=== PATIENT | male | born 1960 | race African-American/Black ===

== ENCOUNTER 2019-01-22 12:39 | Inpatient (IN) | payer MEDICARE ==
[~2019-01-22] VITALS: Ht 188 cm; Wt 117.9 kg
[2019-01-22] MEDS ORDERED: SODIUM CHLORIDE 0.9% 1,000 ML IV ONE (13:08)
[2019-01-22 14:05] LABS: BASOPHILS % 0.4 % (0.0-2.0); EOSINOPHILS % 3.1 % (0.0-5.0); HEMATOCRIT. 40.2 % (42.0-52.0); HEMOGLOBIN. 13.3 g/dL (14.0-18.0); LYMPHOCYTES % 8.3 % (20.0-50.0); MEAN CORPUSCULAR HEMOGLOBIN 30.2 pg (28.0-32.0); MEAN CORPUSCULAR VOLUME 91.4 fL (80.0-94.0); MEAN PLATELET VOLUME 10.7 fl (7.4-10.4); MONOCYTES % 6.1 % (2.0-8.0); NEUTROPHILS % 82.1 % (40.0-76.0); PLATELET 183 x1000/uL (130-400); RED BLOOD CELL COUNT 4.39 mill/uL (4.7-6.1); RED CELL DISTRIBUTION WIDTH 14.3 % (11.6-14.6)
[2019-01-22 14:10] LABS: CHLORIDE 112 mEq/L (98-107)
[2019-01-22 14:14] LABS: ETHANOL BLOOD < 10 mg/dL
[2019-01-22 14:51] LABS: CLARITY URINE CLOUDY (CLEAR); COLOR URINE DARK YELLOW (YELLOW); KETONES URINE TRACE (NEGATIVE); LEUKOCYTE ESTERASE URINE NEGATIVE (NEGATIVE); NITRITE URINE NEGATIVE (NEGATIVE); OCCULT BLOOD URINE 2+ (NEGATIVE); PROTEIN URINE 2+ (NEGATIVE); SPECIFIC GRAVITY URINE 1.034 (1.005-1.030)
[2019-01-22 15:08] LABS: *BARBITURATES SCREEN URINE NEGATIVE (NEGATIVE); CANNABINOID URINE SCREEN NEGATIVE (NEGATIVE); METHADONE URINE SCREEN NEGATIVE (NEGATIVE); OPIATES URINE SCREEN NEGATIVE (NEGATIVE); PHENCYCLIDINE URINE SCREEN NEGATIVE (NEGATIVE)
[2019-01-22 15:09] LABS: *AMPHETAMINES SCREEN URINE PRESUMTIVE POSITIVE (NEGATIVE); *BENZODIAZEPINES SCREEN URINE PRESUMTIVE POSITIVE (NEGATIVE); *COCAINE SCREEN URINE PRESUMTIVE POSITIVE (NEGATIVE)
[2019-01-22] MEDS ORDERED: DOCUSATE SODIUM 100MG CAPSULE PO PRN (15:45)
[2019-01-22] MEDS ORDERED: ACETAMINOPHEN 650MG SUPP PR PRN (15:45)
[2019-01-22] MEDS ORDERED: GUAIFENESIN 200MG/10ML SUGAR FREE UDC PO PRN (15:45)
[2019-01-22] MEDS ORDERED: IPRATROPIUM/ALBUTEROL 0.5-3(2.5)MG/3ML NEB INH PRN (15:45)
[2019-01-22] MEDS ORDERED: CLONIDINE 0.1MG TABLET PO PRN (15:45)
[2019-01-22] MEDS ORDERED: ACETAMINOPHEN 325MG TABLET PO PRN (15:45)
[2019-01-22] MEDS ORDERED: DIPHENHYDRAMINE 50MG/ML VIAL IV PRN (15:45)
[2019-01-22] MEDS ORDERED: DEXTROSE 50% WATER 50ML SYRINGE IV PRN (15:45)
[2019-01-22] MEDS ORDERED: ONDANSETRON HCL 4MG/2ML INJ IV PRN (15:45)
[2019-01-22] MEDS ORDERED: NA PHOS,M-B/NA PHOS,DI-BA ENEMA 118ML PR PRN (15:45)
[2019-01-22] MEDS ORDERED: LORAZEPAM 2MG/ML CPJ IV PRN (15:45)
[2019-01-22] MEDS ORDERED: MAGNESIUM/ALUMINUM HYDROXIDE/SIMETHICONE 30ML UDC PO PRN (15:45)
[2019-01-22 16:04] LABS: PROTHROMBIN TIME 10.3 sec (9.6-11.0)
[2019-01-22 16:30] VITALS: BP 102/71
[2019-01-22 16:36] VITALS: BP 102/71
[2019-01-22] MEDS: BLOOD SUGAR DIAGNOSTIC STRIP TEST SCH ×2 (16:45→21:17)
[2019-01-22] MEDS ORDERED: ENOXAPARIN 40MG/0.4ML SYR SUBCUT SCH (17:00)
[2019-01-22] MEDS: INSULIN LISPRO 100 UNITS/ML SUBCUT SCH ×2 (17:15→21:00)
[2019-01-22] MEDS ORDERED: LEVOFLOXACIN 500MG PREMIX 100 ML IV NR (18:00)
[2019-01-22] MEDS: DEXTROSE 5% WATER 1,000 ML IV SCH (18:15)
[2019-01-22 20:00] VITALS: BP 113/82
[2019-01-22] MEDS: HYDROCODONE/ACETAMINOPHEN 5/325MG TABLET PO PRN (20:58)
[2019-01-22] MEDS: DILTIAZEM HCL 30MG TABLET PO SCH (21:00)
[2019-01-22 23:30] LABS: CREATINE KINASE MB FRACTION 20.8 ng/mL (0.5-3.6)
[2019-01-23] VITALS: BP 124/83
[2019-01-23] MEDS: ASPIRIN 325MG EC TABLET PO SCH (01:30)
[2019-01-23] MEDS ORDERED: ENOXAPARIN 80MG/0.8ML SYR SUBCUT NR (01:30)
[2019-01-23] MEDS: METOPROLOL TARTRATE 25MG TABLET PO SCH ×2 (01:30→09:16)
[2019-01-23 04:00] VITALS: BP 123/85
[2019-01-23] MEDS: DILTIAZEM HCL 30MG TABLET PO SCH ×3 (06:25→21:07)
[2019-01-23] MEDS: DEXTROSE 5% WATER 1,000 ML IV SCH ×2 (06:27→19:10)
[2019-01-23] MEDS: BLOOD SUGAR DIAGNOSTIC STRIP TEST SCH ×4 (06:27→20:16)
[2019-01-23] MEDS: INSULIN LISPRO 100 UNITS/ML SUBCUT SCH ×4 (06:34→21:08)
[2019-01-23 07:07] LABS: BASOPHILS % 0.9 % (0.0-2.0); EOSINOPHILS % 5.7 % (0.0-5.0); HEMATOCRIT. 37.5 % (42.0-52.0); HEMOGLOBIN. 12.5 g/dL (14.0-18.0); LYMPHOCYTES % 20.8 % (20.0-50.0); MEAN CORPUSCULAR HEMOGLOBIN 30.5 pg (28.0-32.0); MEAN CORPUSCULAR VOLUME 91.5 fL (80.0-94.0); MEAN PLATELET VOLUME 10.7 fl (7.4-10.4); MONOCYTES % 10.3 % (2.0-8.0); NEUTROPHILS % 62.3 % (40.0-76.0); PLATELET 155 x1000/uL (130-400); RED CELL DISTRIBUTION WIDTH 13.9 % (11.6-14.6)
[2019-01-23 07:13] LABS: CHLORIDE 108 mEq/L (98-107)
[2019-01-23] MEDS ORDERED: DICLOFENAC NA PO (07:45)
[2019-01-23] MEDS ORDERED: GABA-533 PO (07:46)
[2019-01-23] MEDS ORDERED: ATEN50TA PO (07:47)
[2019-01-23] MEDS ORDERED: OMEP20CA5 PO (07:48)
[2019-01-23] MEDS ORDERED: METF-416 PO (07:50)
[2019-01-23] MEDS ORDERED: ATOR40TA70 PO (07:51)
[2019-01-23] MEDS ORDERED: AMLO10TA80 PO (07:52)
[2019-01-23] MEDS ORDERED: CYCL10TA7 PO (07:53)
[2019-01-23 07:54] LABS: HDL CHOLESTEROL 35 mg/dL (40-59); T4 FREE 1.12 ng/dL (0.76-1.46)
[2019-01-23] MEDS ORDERED: LOSARTAN PO (07:54)
[2019-01-23 07:55] LABS: CREATINE KINASE MB FRACTION 19.5 ng/mL (0.5-3.6)
[2019-01-23] MEDS ORDERED: ACETAMINOPHEN PO (07:56)
[2019-01-23 07:57] LABS: LDL CHOLESTEROL 101 mg/dL (5-100)
[2019-01-23 08:00] VITALS: BP 127/85
[2019-01-23] MEDS ORDERED: LIDOCAINE 2.5% TOP (08:00)
[2019-01-23] MEDS ORDERED: IRON SULFATE PO (08:02)
[2019-01-23] MEDS ORDERED: CHOL200010 PO (08:04)
[2019-01-23] MEDS ORDERED: CHOL100044 PO (08:04)
[2019-01-23] MEDS ORDERED: VALERIAN ROOT PO (08:05)
[2019-01-23] MEDS ORDERED: MULT-1010 PO (08:06)
[2019-01-23 10:38] LABS: CREATINE KINASE 7596 IU/L (39-308)
[2019-01-23 12:00] VITALS: BP 122/89
[2019-01-23] MEDS: LEVOFLOXACIN 250MG PREMIX 50 ML IV SCH (13:34)
[2019-01-23 16:00] VITALS: BP 124/85
[2019-01-23 20:00] VITALS: BP 130/84
[2019-01-23] MEDS: HYDROCODONE/ACETAMINOPHEN 5/325MG TABLET PO PRN (21:07)
[2019-01-23] MEDS: ENOXAPARIN 120MG/0.8ML SYR SUBCUT SCH (23:05)
[2019-01-24] VITALS (8 sets, daily range): BP systolic 124–148; BP diastolic 86–98
[2019-01-24] MEDS: HYDROCODONE/ACETAMINOPHEN 5/325MG TABLET PO PRN ×2 (04:29→10:01)
[2019-01-24] MEDS: DILTIAZEM HCL 30MG TABLET PO SCH ×3 (05:57→21:10)
[2019-01-24] MEDS: BLOOD SUGAR DIAGNOSTIC STRIP TEST SCH ×4 (06:49→21:00)
[2019-01-24] MEDS: INSULIN LISPRO 100 UNITS/ML SUBCUT SCH ×4 (06:53→21:11)
[2019-01-24 07:11] LABS: HEMATOCRIT 38.1 % (42.0-52.0); HEMOGLOBIN 12.8 g/dL (14.0-18.0); MEAN CORPUSCULAR HEMOGLOBIN 30.4 pg (28.0-32.0); MEAN CORPUSCULAR VOLUME 90.7 fL (80.0-94.0); PLATELET 139 x1000/uL (130-400)
[2019-01-24 08:45] LABS: CHLORIDE 104 mEq/L (98-107)
[2019-01-24] MEDS: ASPIRIN 325MG EC TABLET PO SCH (10:02)
[2019-01-24] MEDS: DEXTROSE 5% WATER 1,000 ML IV SCH ×2 (13:02→21:10)
[2019-01-24] MEDS: LEVOFLOXACIN 250MG PREMIX 50 ML IV SCH (14:26)
[2019-01-24 18:51] LABS: BASOPHILS % 0.8 % (0.0-2.0); EOSINOPHILS % 6.4 % (0.0-5.0); HEMATOCRIT. 39.5 % (42.0-52.0); LYMPHOCYTES % 24.1 % (20.0-50.0); MEAN CORPUSCULAR HEMOGLOBIN 29.7 pg (28.0-32.0); MEAN CORPUSCULAR VOLUME 90.3 fL (80.0-94.0); MEAN PLATELET VOLUME 10.2 fl (7.4-10.4); MONOCYTES % 9.2 % (2.0-8.0); NEUTROPHILS % 59.5 % (40.0-76.0); PLATELET 147 x1000/uL (130-400); RED BLOOD CELL COUNT 4.38 mill/uL (4.7-6.1); RED CELL DISTRIBUTION WIDTH 13.7 % (11.6-14.6)
[2019-01-24 18:55] LABS: CHLORIDE 101 mEq/L (98-107)
[2019-01-24 19:15] LABS: CREATINE KINASE 3164 IU/L (39-308)
[2019-01-25] VITALS: BP 145/103
[2019-01-25] MEDS: ENOXAPARIN 120MG/0.8ML SYR SUBCUT SCH (00:16)
[2019-01-25 04:00] VITALS: BP 145/105
[2019-01-25] MEDS: DILTIAZEM HCL 30MG TABLET PO SCH ×2 (05:59→14:38)
[2019-01-25] MEDS: BLOOD SUGAR DIAGNOSTIC STRIP TEST SCH ×3 (06:01→17:32)
[2019-01-25] MEDS: INSULIN LISPRO 100 UNITS/ML SUBCUT SCH ×3 (06:01→17:15)
[2019-01-25] MEDS: HYDROCODONE/ACETAMINOPHEN 5/325MG TABLET PO PRN (06:11)
[2019-01-25 08:00] VITALS: BP 140/88
[2019-01-25] MEDS: ASPIRIN 325MG EC TABLET PO SCH (09:00)
[2019-01-25] MEDS: DEXTROSE 5% WATER 1,000 ML IV SCH (11:10)
[2019-01-25 12:00] VITALS: BP 141/99
[2019-01-25] MEDS: LEVOFLOXACIN 250MG PREMIX 50 ML IV SCH (14:38)
[2019-01-25 16:00] VITALS: BP 145/104
[2019-01-25 17:35] VITALS: BP 145/104
== END 2019-01-25 18:30 | disposition home or self-care (01) | DRG 280 ==
LOC: ER 12:39 → 5WST 15:15 → ENRESERV 15:25 → SUPCPDRO 15:30 → 5WST 16:13
PROVIDERS: ADMIT Internal Medicine; ATTEND Internal Medicine
DX: I21.4 Non-ST elevation (NSTEMI) myocardial infarction (principal); G92 Toxic encephalopathy; N17.9 Acute kidney failure, unspecified; I82.431 Acute embolism and thrombosis of right popliteal vein; M62.82 Rhabdomyolysis; N39.0 Urinary tract infection, site not specified; R65.10 Systemic inflammatory response syndrome (SIRS) of non-infectious origin without acute organ dysfunction; N18.9 Chronic kidney disease, unspecified; E11.22 Type 2 diabetes mellitus with diabetic chronic kidney disease; I12.9 Hypertensive chronic kidney disease with stage 1 through stage 4 chronic kidney disease, or unspecified chronic kidney disease; E11.65 Type 2 diabetes mellitus with hyperglycemia; D64.9 Anemia, unspecified; E78.5 Hyperlipidemia, unspecified; F19.10 Other psychoactive substance abuse, uncomplicated; E86.0 Dehydration; F10.10 Alcohol abuse, uncomplicated; Z96.651 Presence of right artificial knee joint; G89.29 Other chronic pain; Z79.01 Long term (current) use of anticoagulants; Z82.49 Family history of ischemic heart disease and other diseases of the circulatory system; Z86.718 Personal history of other venous thrombosis and embolism; Z79.1 Long term (current) use of non-steroidal anti-inflammatories (NSAID); Z79.899 Other long term (current) drug therapy; Z79.84 Long term (current) use of oral hypoglycemic drugs
CPT/HCPCS: 36415; 71045; 76770; 78582; 80048; 80061; 80305; 80320; 80355; 81003; 82140; 82550; 82553; 82962; 83036; 84439; 84443; 84484; 85027; 87077; 87186; 93005; 93306; 93970; 96374; 97161; 99285; A9558; J1650; J1815; J1956; J7030; J7070; G0480

== ENCOUNTER 2025-01-27 10:31 | Inpatient (IN) | payer MEDICARE ==
[~2025-01-27] VITALS: Ht 188 cm; Wt 110.4 kg
[~2025-01-27 10:31] MED LIST: ACETAMINOPHEN PO; AMLO10TA80 PO; ATOR40TA70 PO; CHOL100044 PO; CYCL10TA21 PO; DICLOFENAC NA PO; DULO30CA52 MT; IRON SULFATE PO; LIDOCAINE 2.5% TOP; METF-416 PO; MULT-1010 PO; OMEP20CA14 PO; PREG75CA PO
[2025-01-27 10:32] VITALS: O2SAT 100
[2025-01-27 11:12] LABS: BASOPHILS % 0.7 % (0.0-2.0); EOSINOPHILS % 5.3 % (0.0-5.0); HEMATOCRIT. 43.0 % (42.0-52.0); HEMOGLOBIN. 14.2 g/dL (14.0-18.0); LYMPHOCYTES % 16.0 % (20.0-50.0); MEAN PLATELET VOLUME 10.0 fl (7.4-10.4); MONOCYTES % 9.4 % (2.0-8.0); NEUTROPHILS % 68.6 % (40.0-76.0); PLATELET 169 x1000/uL (130-400); RED BLOOD CELL COUNT 4.69 mill/uL (4.7-6.1); RED CELL DISTRIBUTION WIDTH 13.4 % (11.6-14.6)
[2025-01-27 11:25] LABS: CREATININE 1.5 mg/dL (0.6-1.3); UREA NITROGEN BLOOD 20 mg/dL (9-23)
[2025-01-27 11:27] LABS: ASPARTATE AMINOTRANSFERASE 26 IU/L (<34); BILIRUBIN DIRECT 0.3 mg/dL (<=3.0); BILIRUBIN TOTAL 1.0 mg/dL (0.1-1.0); PROTEIN TOTAL 7.1 g/dL (6.0-8.3); TROPONIN I HIGH SENSITIVITY 9 ng/L (3.0-53)
[2025-01-27] MEDS: HALOPERIDOL LACTATE 5MG/ML VIAL IM ONE (12:21)
[2025-01-27] MEDS: HYDRALAZINE 20MG/ML VIAL IV ONE (12:21)
[2025-01-27] MEDS: LORAZEPAM 2MG/ML UD SYRINGE IM SCH (12:58)
[2025-01-27] MEDS ORDERED: GUAIFENESIN 200MG/10ML SUGAR FREE UDC PO PRN (14:00)
[2025-01-27] MEDS ORDERED: ACETAMINOPHEN 325MG TABLET PO PRN (14:00)
[2025-01-27] MEDS ORDERED: MAGNESIUM/ALUMINUM HYDROXIDE/SIMETHICONE 30ML UDC PO PRN (14:00)
[2025-01-27] MEDS ORDERED: DOCUSATE SODIUM 100MG CAPSULE PO PRN (14:00)
[2025-01-27] MEDS ORDERED: ONDANSETRON HCL 4MG/2ML INJ IV PRN (14:00)
[2025-01-27] MEDS ORDERED: IPRATROPIUM/ALBUTEROL 0.5-3(2.5)MG/3ML NEB HHN PRN (14:00)
[2025-01-27] MEDS: AMLODIPINE 10MG TABLET PO SCH (14:00)
[2025-01-27] MEDS ORDERED: HYDRALAZINE 20MG/ML VIAL IV PRN (14:45)
[2025-01-27 16:04] VITALS: BP 184/98; PULSE 103; RESP 20; TEMP 36.4; O2SAT 97
[2025-01-27 16:13] VITALS: BP 184/98; PULSE 102; RESP 18; TEMP 36.5848
[2025-01-27] MEDS: DICLOFENAC SODIUM 1% GEL 50GM TOP SCH (17:00)
[2025-01-27] MEDS: SODIUM CHLORIDE 0.9% 1,000 ML IV ONE (17:27)
[2025-01-27] MEDS: ASPIRIN 81MG TABLET PO SCH (17:28)
[2025-01-27] MEDS: CLONIDINE 0.1MG TABLET PO PRN (17:28)
[2025-01-27] MEDS: AMLODIPINE 10MG TABLET PO NR (19:04)
[2025-01-27 20:00] VITALS: BP 152/100; PULSE 93; RESP 20; TEMP 36.8; O2SAT 100
[2025-01-27 20:51] LABS: SODIUM URINE RANDOM 68 mEq/L
[2025-01-27 20:58] LABS: *AMPHETAMINES SCREEN URINE NEGATIVE (NEGATIVE); *BARBITURATES SCREEN URINE NEGATIVE (NEGATIVE); *BENZODIAZEPINES SCREEN URINE NEGATIVE (NEGATIVE); *COCAINE SCREEN URINE NEGATIVE (NEGATIVE); CANNABINOID URINE SCREEN NEGATIVE (NEGATIVE); ECSTASY MDMA SCREEN URINE NEGATIVE (NEGATIVE); METHADONE URINE SCREEN NEGATIVE (NEGATIVE); OPIATES URINE SCREEN NEGATIVE (NEGATIVE); PHENCYCLIDINE URINE SCREEN NEGATIVE (NEGATIVE)
[2025-01-27] MEDS: PREGABALIN 75MG CAPSULE PO SCH (21:46)
[2025-01-27] MEDS: ATORVASTATIN CALCIUM 40MG TABLET PO SCH (21:47)
[2025-01-27] MEDS: HYDRALAZINE HCL 25MG TABLET PO SCH (21:47)
[2025-01-28] VITALS: BP 148/86; PULSE 84; RESP 20; TEMP 37; O2SAT 100
[2025-01-28 01:52] LABS: CLARITY URINE CLEAR (CLEAR); COLOR URINE YELLOW (YELLOW); GLUCOSE URINE NEGATIVE (NEGATIVE); KETONES URINE TRACE (NEGATIVE); LEUKOCYTE ESTERASE URINE NEGATIVE (NEGATIVE); NITRITE URINE NEGATIVE (NEGATIVE); OCCULT BLOOD URINE NEGATIVE (NEGATIVE); PH URINE 5.5 (4.5-8.0); PROTEIN URINE NEGATIVE (NEGATIVE); SPECIFIC GRAVITY URINE 1.011 (1.005-1.030); UROBILINOGEN URINE 1.0 E.U./dL (0.2-1.0)
[2025-01-28] MEDS: ACETAMINOPHEN 325MG TABLET PO PRN (03:35)
[2025-01-28 04:00] VITALS: BP 151/96; PULSE 80; RESP 20; TEMP 36.5; O2SAT 100
[2025-01-28] MEDS ORDERED: CAPSAICIN (06:03)
[2025-01-28] MEDS ORDERED: METF-416 MT (06:03)
[2025-01-28] MEDS ORDERED: CAND1TAB17 MT (06:03)
[2025-01-28] MEDS ORDERED: DORZ10DR9 EACHEYE (06:03)
[2025-01-28] MEDS ORDERED: EMPA10TA MT (06:03)
[2025-01-28] MEDS ORDERED: LATA2.5D14 EACHEYE (06:03)
[2025-01-28] MEDS ORDERED: FERR325T6 PO (06:03)
[2025-01-28] MEDS ORDERED: CLIN60LO6 TP (06:03)
[2025-01-28] MEDS ORDERED: CETI10TA11 MT (06:03)
[2025-01-28] MEDS ORDERED: EZET-55 MT (06:03)
[2025-01-28] MEDS ORDERED: CARV25TA47 MT (06:03)
[2025-01-28 07:10] LABS: TROPONIN I HIGH SENSITIVITY 17 ng/L (3.0-53)
[2025-01-28 07:11] LABS: BASOPHILS % 0.9 % (0.0-2.0); EOSINOPHILS % 6.2 % (0.0-5.0); HEMATOCRIT. 41.2 % (42.0-52.0); HEMOGLOBIN. 13.7 g/dL (14.0-18.0); LYMPHOCYTES % 15.7 % (20.0-50.0); MEAN PLATELET VOLUME 10.5 fl (7.4-10.4); MONOCYTES % 11.0 % (2.0-8.0); NEUTROPHILS % 66.2 % (40.0-76.0); PLATELET 163 x1000/uL (130-400); RED BLOOD CELL COUNT 4.52 mill/uL (4.7-6.1); RED CELL DISTRIBUTION WIDTH 13.2 % (11.6-14.6)
[2025-01-28 07:14] LABS: CREATININE 1.4 mg/dL (0.6-1.3); UREA NITROGEN BLOOD 17 mg/dL (9-23)
[2025-01-28 08:00] VITALS: BP 143/102; PULSE 80; RESP 16; TEMP 36.7; O2SAT 98
[2025-01-28] MEDS: PANTOPRAZOLE 40MG DR TABLET PO SCH (08:20)
[2025-01-28] MEDS: CLOPIDOGREL 75MG TABLET PO SCH (08:21)
[2025-01-28] MEDS: ENOXAPARIN 30MG/0.3ML SYR SUBCUT SCH (08:22)
[2025-01-28 12:00] VITALS: BP 119/89; PULSE 89; RESP 18; TEMP 36.5; O2SAT 98
[2025-01-28 15:20] VITALS: BP 119/78; PULSE 89; RESP 18; TEMP 97.7
== END 2025-01-28 16:55 | disposition home or self-care (01) | DRG 641 ==
LOC: ER 10:31 → 7WST 13:37 → EDBEDREQTM 13:40 → EDBEDREQ 13:40 → ENRESERV 14:17
PROVIDERS: ADMIT Internal Medicine; ATTEND Internal Medicine
DX: E86.0 Dehydration (principal); N17.9 Acute kidney failure, unspecified; R06.00 Dyspnea, unspecified; E11.40 Type 2 diabetes mellitus with diabetic neuropathy, unspecified; E11.65 Type 2 diabetes mellitus with hyperglycemia; E83.52 Hypercalcemia; G89.29 Other chronic pain; K21.9 Gastro-esophageal reflux disease without esophagitis; I10 Essential (primary) hypertension; M47.812 Spondylosis without myelopathy or radiculopathy, cervical region; Z79.84 Long term (current) use of oral hypoglycemic drugs; Z79.899 Other long term (current) drug therapy; Z86.718 Personal history of other venous thrombosis and embolism; Z86.73 Personal history of transient ischemic attack (TIA), and cerebral infarction without residual deficits; Z87.891 Personal history of nicotine dependence; Z82.49 Family history of ischemic heart disease and other diseases of the circulatory system
CPT/HCPCS: 36415; 71045; 80048; 80076; 80305; 81003; 82570; 84300; 84484; 85025; 93005; 93970; 99285; J0360; J1630; J1650; J2060